=== PATIENT | female | born 1990 | race Caucasian/White ===

== ENCOUNTER 2019-05-20 17:06 | Emergency (ER) | payer OTHER ==
[~2019-05-20] VITALS: Ht 172.7 cm; Wt 77.0 kg
[2019-05-20] MEDS ORDERED: IBUPROFEN 600MG TABLET PO ONE (19:00)
[2019-05-20 19:57] VITALS: BP 135/79
== END 2019-05-20 20:24 | disposition home or self-care (01) ==
LOC: ER 17:06
DX: S09.8XXA Other specified injuries of head, initial encounter (principal); S80.211A Abrasion, right knee, initial encounter; Y04.0XXA Assault by unarmed brawl or fight, initial encounter; Y93.89 Activity, other specified; Y92.89 Other specified places as the place of occurrence of the external cause; Y99.8 Other external cause status
CPT/HCPCS: 73560; 99284